=== PATIENT | male | born 1950 | race Caucasian/White ===

== ENCOUNTER 2017-08-26 13:15 | Inpatient (IN) ==
[2017-08-26] MEDS ORDERED: IOPAMIDOL 100 ML BOTTLE IV ONE (13:16)
[2017-08-26] MEDS ORDERED: 0.9 % SODIUM CHLORIDE 1,000 ML IV ONE (13:36)
[2017-08-26] MEDS ORDERED: ONDANSETRON 4 MG/2 ML VIAL IV ONE (13:50)
[2017-08-26] MEDS: HYDROmorphone 2 MG/ML SYRINGE IV PRN ×4 (14:01→17:44)
[2017-08-26 14:30] LABS: Mean Cell Volume 84.6 fL (80.0-100.0); Mean Corpuscular HGB Conc 32.7 g/dL (31.0-36.0); Mean Corpuscular Hemoglobin 27.7 pg (26.0-34.0); Platelet Count 358 K/mcL (140-440); Red Cell Distribution Width 13.7 % (11.5-14.5)
[2017-08-26 14:48] LABS: ALT/SGPT 12 U/l (0-40); Albumin 4.7 gm/dL (3.2-5.2); Albumin/Globulin Ratio 1.5 (1.0-2.3); Alkaline Phosphatase 89 U/L (39-117); Blood Urea Nitrogen 15 mg/dl (8-23); Lipase 25 U/L (7-60)
[2017-08-26 15:13] LABS: Band Neutrophils % 2 % (0-10); Lymphocytes % 7 % (15-49); Monocytes % (Manual) 6 % (1-12); Platelet Estimate NORMAL (NORMAL); RBC Morphology NORMAL (NORMAL); Segmented Neutrophils % 85 % (38-78)
[2017-08-26] MEDS ORDERED: LEVOFLOXACIN 500 MG/100 ML BAG IV ONE (15:15)
[2017-08-26] MEDS ORDERED: metroNIDAZOLE 500 MG/100 ML BAG IV ONE (15:15)
--- NOTE | 2017-08-26 15:30 | Emergency Department Note ---
Abdominal Pain HPI - General Chief Complaint: Abdominal Pain Stated Complaint: ABD pain, high white count Time Seen by Provider: 08/26/17 13:48 Source: patient Mode of arrival: ambulatory Limitations: no limitations - History of Present Illness HPI Narrative: 67-year-old male who started suddenly vomiting this morning. He went to [facility] urgent care in [place]. Reports some loose still last night fever and chills with severe right lower quadrant belly pain. By medicine sent him over here. Also reports dizziness and swelling in the feet sometimes but this is intermittent - Related Data Previous Rx's Medication Instructions Recorded Meclizine [Antivert] 25 mg PO TIDP PRN #30 tablet 02/05/16 Allergies Allergy/AdvReac Type Severity Reaction Status Date / Time No Known Drug Allergies Allergy Verified 08/26/17 13:22 Review of Systems All systems ED: reviewed and negative except as stated. Abdominal Pain PMH - Past Medical History Attestation: Yes: The following information was validated with the patient. Medical history: Reports: kidney stones, other (He has a central nervous system disorder) Surgical history ED: Reports: cataract, tonsillectomy, ureteral stent - Social History Smoking status: Never smoker Alcohol use: Reports: Rarely Physical Exam Some acute distress but able to rest. Not diaphoretic. Normocephalic atraumatic. Conjunctive are clear sclerae nonicteric. No nasal discharge or congestion. Oropharynx is pink and moist. Neck is supple without lymphadenopathy thyromegaly or carotid bruit. Heart is regular rate and rhythm no murmurs appreciated. Lungs clear to auscultation bilaterally without wheezes rales rhonchi or respiratory distress. Abdomen is soft nonrigid but tender in multiple locations including epigastric periumbilical and right lower quadrant as well as right flank. guarding a little bit. No current pedal edema. +2 radial pulse. Alert oriented able answer questions appropriately. On initial exam he was actually vomiting and heaving-this resolved with Zofran - General Limitations: no limitations Course Vital Signs Temperature 98.6 F 08/26/17 13:17 Pulse Rate 85 08/26/17 13:17 Respiratory Rate 16 08/26/17 13:17 Blood Pressure 176/98 08/26/17 13:17 Pulse Oximetry (%) 97 08/26/17 13:17 Temperature 99.9 F H 08/27/17 07:20 Pulse Rate 64 08/27/17 07:20 Respiratory Rate 14 08/27/17 07:20 Blood Pressure 150/71 08/27/17 07:20 Pulse Oximetry (%) 94 08/27/17 07:20 Abdominal Pain - Lab Data Lab results reviewed: Yes I reviewed the patient's lab results. Result diagrams: 08/27/17 05:06 08/27/17 05:06 Lab Results 08/26/17 08/26/17 08/26/17 Range/Units 13:51 13:51 13:51 WBC 23.4 H (4.5-11.0) K/mcL RBC 5.40 (4.50-5.90) M/mcL Hgb 14.9 (13.5-16.5) g/dL Hct 45.7 (41.0-55.0) % POC Hct 47.0 (41.0-55.0) % MCV 84.6 (80.0-100.0) fL MCH 27.7 (26.0-34.0) pg MCHC 32.7 (31.0-36.0) g/dL RDW 13.7 (11.5-14.5) % Plt Count 358 (140-440) K/mcL MPV 8.7 (7.4-10.4) fL Total Counted 100 Seg Neutrophils % 85 H (38-78) % Band Neutrophils % 2 (0-10) % Lymphocytes % 7 L (15-49) % Monocytes % (Manual) 6 (1-12) % Platelet Estimate Normal (NORMAL) RBC Morphology Normal (NORMAL) VBG Lactic Acid 2.1 (0.5-2.2) mmol/L POC Sodium 138 (133-145) mmol/L Sodium 139 (133-145) mmol/L POC Potassium 4.1 (3.3-5.1) mmol/L Potassium 4.0 (3.3-5.1) mmol/L POC Chloride 104 (96-108) mmol/L Chloride 100 (96-108) mmol/L Carbon Dioxide 22 (22-30) mmol/L POC Total CO2 23 (22-30) mmol/L Anion Gap 17.0 H (8-16) POC BUN 16 (8-23) mg/dl BUN 15 (8-23) mg/dl Creatinine 1.2 (0.7-1.2) mg/dl POC Creatinine 1.2 (0.7-1.2) mg/dl GFR Calculation 61 Glucose 109 H (70-105) mg/dL POC Glucose 110 H (70-105) mg/dL Calcium 9.5 (8.6-10.4) mg/dl POC WB Ioniz Calcium 1.17 (1.16-1.32) mmol/L Total Bilirubin 0.9 (0.0-1.0) mg/dL AST 22 (0-37) U/l ALT 12 (0-40) U/l Alkaline Phosphatase 89 (39-117) U/L Total Protein 7.9 (5.9-8.4) gm/dL Albumin 4.7 (3.2-5.2) gm/dL Globulin 3.2 (2.2-3.7) gm/dL Albumin/Globulin Ratio 1.5 (1.0-2.3) Lipase 25 (7-60) U/L Procalcitonin (<0.10) ng/mL 08/26/17 Range/Units 13:51 WBC (4.5-11.0) K/mcL RBC (4.50-5.90) M/mcL Hgb (13.5-16.5) g/dL Hct (41.0-55.0) % POC Hct (41.0-55.0) % MCV (80.0-100.0) fL MCH (26.0-34.0) pg MCHC (31.0-36.0) g/dL RDW (11.5-14.5) % Plt Count (140-440) K/mcL MPV (7.4-10.4) fL Total Counted Seg Neutrophils % (38-78) % Band Neutrophils % (0-10) % Lymphocytes % (15-49) % Monocytes % (Manual) (1-12) % Platelet Estimate (NORMAL) RBC Morphology (NORMAL) VBG Lactic Acid (0.5-2.2) mmol/L POC Sodium (133-145) mmol/L Sodium (133-145) mmol/L POC Potassium (3.3-5.1) mmol/L Potassium (3.3-5.1) mmol/L POC Chloride (96-108) mmol/L Chloride (96-108) mmol/L Carbon Dioxide (22-30) mmol/L POC Total CO2 (22-30) mmol/L Anion Gap (8-16) POC BUN (8-23) mg/dl BUN (8-23) mg/dl Creatinine (0.7-1.2) mg/dl POC Creatinine (0.7-1.2) mg/dl GFR Calculation Glucose (70-105) mg/dL POC Glucose (70-105) mg/dL Calcium (8.6-10.4) mg/dl POC WB Ioniz Calcium (1.16-1.32) mmol/L Total Bilirubin (0.0-1.0) mg/dL AST (0-37) U/l ALT (0-40) U/l Alkaline Phosphatase (39-117) U/L Total Protein (5.9-8.4) gm/dL Albumin (3.2-5.2) gm/dL Globulin (2.2-3.7) gm/dL Albumin/Globulin Ratio (1.0-2.3) Lipase (7-60) U/L Procalcitonin 0.11 (<0.10) ng/mL - Radiology Data Radiology results reviewed: Yes I reviewed the patient's radiology results. CT scan of the abdomen and pelvis shows 2 stones 1 3 and 1 4 mm stone at right UVJ junction and moderate to severe sigmoid diverticulitis without abscess or perforation Disposition Pt seen by [employer]/PA only: No Clinical Impression: Ureteral calculus, right Diverticulitis Qualifiers: Diverticulitis site: large intestine Diverticulitis bleeding: without bleeding Diverticulitis complication: without perforation or abscess Qualified Code(s): K57.32 - Diverticulitis of large intestine without perforation or abscess without bleeding Summary: Patient initially treated with Zofran IV fluids and Dilaudid during workup Found to have significant diverticulitis and so treated with fluoroquinolone and metronidazole IV. Also symptomatic ureteral stones in the right Discussed his case with Dr. Javi Lakhani general surgeon who agreed to consult on the patient but recommended hospitalist to admit. Discussed case with Dr. Welch the hospitalist who agreed to admit the patient for further care Disposition: Xfer As Inpt ([facility]) Condition: Serious
--- NOTE | 2017-08-26 18:01 | Internal Med History&Physical ---
Medical - H&P: [facility] Patient information: Note initiated : 08/26/17 at 5:58 pm Service Date, if different from initiated Date: [] Patient: Enrique Jones a 67 y/o M admitted on for ABD pain, high white count. Chief Complaint: n/v History of present illness: Mr. Jones is a 67 year old M With a history of nephrolithiasis, heart murmur, central sleep apnea who was in usual state of health until 6 AM this morning when he had intractable nausea and vomiting as well as hematuria. He complains of central and lower abdominal pain that has now improved to 5/10 after Dilaudid in the ER. He has had no fevers, but does have chills. His emesis was nonbloody and nonbilious. No diarrhea. CT scan was done in the ED which shows a right 4 mm renal stone and uncomplicated diverticulitis. Dr. Lakhani with surgery was consultative by the ED provider.He was treated with Levaquin, Flagyl, Zofran and Dilaudid. He had a mild lactic acidosis of 2.1 and white count elevated to 23.4. He has had multiple episodes of nephrolithiasis. He was previously followed by Dr. Kellogg and has required multiple lithotripsies. He does not take any medications to help prevent renal stones. Review of systems: Please see the HPI. Otherwise, a comprehensive of review systems is negative or noncontributory to the chief complaint. Medical - H&P: PMH Medical history: #Nephrolithiasis status post lithotripsy 3 #Central sleep apnea. He is not on CPAP or nocturnal oxygen. #There is mention of peptic ulcer disease in his chart. He denies this. He does state he was admitted to [facility] in 1970 for possible heart attack. Surgical history: #Bilateral cataract surgery #Multiple eye surgeries in the past was sounds like strabismus Pertinent family history: His brother also has nephrolithiasis. Social history: He lives alone. 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 He is a full code and designates his best friend, Scarlett Pierce, as his surrogate medical decision maker. He is a never smoker and drinks 3-4 beers a year. He denies any recreational drug use. Medical - H&P: Meds Home Medications Medication Instructions Recorded Confirmed Type Meclizine [Antivert] 25 mg PO TIDP PRN #30 tablet 02/05/16 08/26/17 Rx Allergies Allergy/AdvReac Type Severity Reaction Status Date / Time No Known Drug Allergies Allergy Verified 08/26/17 13:22 Medical - H&P: Exam - Constitutional Vitals: Temp Pulse Resp BP Pulse Ox 98.6 F 68 16 148/84 96 08/26/17 13:17 08/26/17 17:22 08/26/17 13:17 08/26/17 17:16 08/26/17 17:22 General: Well-developed, well-nourished. NAD. Appears his stated age. HEENT: Normocephalic, atraumatic. PERRLA. EOMI. Anicteric sclera; conjunctiva are clear. External ears are normal. Mucous members are moist. Neck: Is supple without lymphadenopathy or JVD. CV: Regular rate and rhythm. 1/6 systolic murmur best heard at the left lower sternal border Pulmonary: No acute respiratory distress. Lungs are clear auscultation bilaterally. Abdomen: Mildly distended, moderate tenderness throughout. No guarding or rebound. Hypoactive bowel tones. Extremities: No clubbing, cyanosis or edema. Neuro: Alert and oriented 3. Cranial nerves II through XII are intact. No focal motor or sensory deficits. Skin: Warm and dry Psych: Normal mood and affect Medical - H&P: Reslt - Labs CBC & Chem 7: 08/26/17 13:51 08/26/17 13:51 Labs: Short CBC 08/26/17 Range/Units 13:51 WBC 23.4 H (4.5-11.0) K/mcL Hgb 14.9 (13.5-16.5) g/dL Hct 45.7 (41.0-55.0) % Plt Count 358 (140-440) K/mcL BMP 08/26/17 13:51 Sodium 139 Potassium 4.0 Chloride 100 Carbon Dioxide 22 BUN 15 Creatinine 1.2 Glucose 109 H Calcium 9.5 Liver Function 08/26/17 Range/Units 13:51 Total Bilirubin 0.9 (0.0-1.0) mg/dL AST 22 (0-37) U/l ALT 12 (0-40) U/l Alkaline Phosphatase 89 (39-117) U/L Albumin 4.7 (3.2-5.2) gm/dL - Impressions CT scan reportedly shows diverticulitis and a 4mm stone. I also reviewed the images and agree. Medical - H&P: A/P - Narrative A/P Narrative: #Right renal stone, 4mm With history of multiple prior renal stones. Given its size, this is likely to pass on its own. Will order IV fluids, IV Dilaudid and Flomax. Check UA given his leukocytosis to rule out obstructive pyelonephritis. He is well covered with antibiotics below. Strain urine. #Uncomplicated diverticulitis No evidence of perforation or abscess on CT. Appreciate Dr. Lakhani's surgical input. Continue IV Levaquin and Flagyl. # Intractable nausea/ vomiting Clear liquid diet as tolerated. PRN antiemetics. This is likely related to pain , his nephrolithiasis and his diverticulitis. #Leukocytosis with lactic acidosis. Does not meet sepsis or qsofa criteria. May have component of infection, but also suspect a stress response. We'll trend lactic acid and leukocytosis. #DVT prophylaxis: Enoxaparin #CODE STATUS: Full. His best friend, Scarlett Pierce, is his surrogate medical decision maker.
[2017-08-26] MEDS ORDERED: ONDANSETRON 4 MG/2 ML VIAL IV PRN (18:12)
[2017-08-26] MEDS ORDERED: HYDROmorphone 2 MG/ML SYRINGE IV PRN (18:12)
[2017-08-26] MEDS ORDERED: metroNIDAZOLE 500 MG/100 ML BAG IV SCH (18:30)
--- NOTE | 2017-08-26 18:44 | Cat Scan Report ---
CLINICAL INFORMATION: Abdominal pain nausea and vomiting COMPARISON: None. TECHNIQUE: Following enteric contrast, 80 cc of Isovue-300 were injected intravenously, and 60 seconds later, 2.5 mm helical slices were obtained from the mid heart through the subtrochanteric regions. Following reconstruction, 2.5 mm sagittal, coronal and axial reformatted images were processed and reviewed at bone, lung and soft tissue windows. Five minutes later, 5 mm helical slices were obtained from the mid heart through the kidneys and viewed at soft tissue windows. FINDINGS: Lung bases show minor bibasilar atelectasis. No effusion. The visualized heart is mildly enlarged. Images through the abdomen show the liver, gallbladder and bile ducts, spleen, pancreas and aorta, including aortic branches, are normal in size, configuration and attenuation without focal lesion. There are two small adjacent stones in the distal right ureter at the level of the sciatic notch. They measure three and 4 mm respectively and result in moderate right hydroureter/hydronephrosis. A small amount of perinephric fluid surrounds the right kidney - as expected. Moderate lobulation of both kidneys. One millimeter nonobstructing stone seen inferior calyx of the right kidney to three small non-nonobstructing stones noted inferior calyx of the left kidney. Images through the pelvis show urinary bladder to be normal. The prostate is moderately enlarged. The seminal vesicles unremarkable. Moderate diverticulitis of the mid sigmoid colon features moderate wall thickening and and inflammatory changes in the perisigmoid fat. There is a 3 cm diverticulum projecting from the antimesenteric mesenteric wall of the mid sigmoid colon. It is inflamed. The remainder of the colon, appendix, small bowel and stomach are grossly normal. Bone windows show no osseous abnormality. IMPRESSION: 1. Moderate, yet simple, diverticulitis involving a 10 cm segment of mid sigmoid colon. This features a 3 cm giant diverticulum projecting superiorly from the antimesenteric border. No evidence of raul abscess or fistula. 2. Two stones, 4 mm and 3 mm respectively, in the distal right ureter resulting in moderate hydroureter/hydronephrosis. Small nonobstructing stones inferior calyces of both kidneys are also noted 3. 19 mm left adrenal nodule which should represent a benign adenoma 4. Moderate prostate enlargement Interpreted and Authenticated by: Toy Devine 08/26/17
[2017-08-26] MEDS ORDERED: HYDROcodone/APAP 5/325MG TABLET PO ONE (19:24)
[2017-08-26] MEDS ORDERED: ONDANSETRON 4 MG/2 ML VIAL ONE (19:25)
[2017-08-26] MEDS: 0.9 % SODIUM CHLORIDE 1,000 ML IV SCH (19:26)
[2017-08-26] MEDS: SENNOSIDES 1 TABLET PO SCH (21:09)
[2017-08-26] MEDS: 0.9 % SODIUM CHLORIDE 10 ML SYRINGE IV SCH (22:22)
[2017-08-26] MEDS: metroNIDAZOLE 500 MG/100 ML BAG IV SCH (22:22)
[2017-08-26] MEDS: HYDROcodone/APAP 5/325MG TABLET PO PRN (23:32)
[2017-08-26] MEDS: PROCHLORPERAZINE 10 MG/2 ML VIAL IV PRN (23:35)
[2017-08-26 23:41] LABS: Appearance,Urine HAZY; Bacteria,Urine 0 /hpf (0); Bilirubin,Urine NEG (NEG); Color,Urine YELLOW; Glucose,Urine (UA) NEGATIVE (NEG); Leukocyte Esterase,Urine NEG /uL (NEG); Mucus,Urine MOD /hpf (0); Nitrate,Urine NEG (NEG); Protein,Urine NEG (NEG); Specific Gravity,Urine 1.042 (1.000-1.035); Urine Amorphous Crystals FEW /hpf (0); Urine Blood >=1.0 mg/dL (<0.03); Urine RBC > 182 /hpf (0-1); Urine Squamous Epithelial Cell 0 /hpf (0-4); Urine WBC 27 /hpf (0-4); Urobilinogen,Urine NEG (NEG)
[2017-08-27] MEDS: 0.9 % SODIUM CHLORIDE 1,000 ML IV SCH ×3 (03:54→18:57)
[2017-08-27] MEDS: metroNIDAZOLE 500 MG/100 ML BAG IV SCH ×3 (06:01→21:17)
[2017-08-27] MEDS: 0.9 % SODIUM CHLORIDE 10 ML SYRINGE IV SCH ×3 (06:01→22:15)
[2017-08-27 06:42] LABS: Mean Cell Volume 84.6 fL (80.0-100.0); Mean Corpuscular HGB Conc 33.6 g/dL (31.0-36.0); Mean Corpuscular Hemoglobin 28.4 pg (26.0-34.0); Platelet Count 262 K/mcL (140-440); RBC 4.46 M/mcL (4.50-5.90); Red Cell Distribution Width 14.2 % (11.5-14.5)
[2017-08-27 06:58] LABS: ALT/SGPT 10 U/l (0-40); Albumin 3.8 gm/dL (3.2-5.2); Albumin/Globulin Ratio 1.5 (1.0-2.3); Alkaline Phosphatase 67 U/L (39-117); Blood Urea Nitrogen 14 mg/dl (8-23)
[2017-08-27 07:28] LABS: Band Neutrophils % 1 % (0-10); Lymphocytes % 7 % (15-49); Monocytes % (Manual) 5 % (1-12); Platelet Estimate NORMAL (NORMAL); RBC Morphology NORMAL (NORMAL); Segmented Neutrophils % 87 % (38-78)
[2017-08-27] MEDS: ENOXAPARIN 40 MG/0.4 ML SYRINGE SQ SCH (08:18)
[2017-08-27] MEDS: TAMSULOSIN 0.4 MG CAPSULE PO SCH (08:18)
[2017-08-27] MEDS: PROCHLORPERAZINE 10 MG/2 ML VIAL IV PRN (08:25)
[2017-08-27] MEDS ORDERED: LEVOFLOXACIN 500 MG/100 ML BAG IV SCH (09:00)
--- NOTE | 2017-08-27 15:01 | Internal Med Progress Note ---
Medical - PN: Subj Patient information: Note initiated : 08/27/17 at 2:57 pm Service Date, if different from initiated Date: [] Patient: Enrique Jones 67 y/o M admitted on 08/26/17 for ABD pain, high white count. Chief Complaint: nausea Interval history: Admit August 26: This is a 67-year-old male with a history of nephrolithiasis , heart murmur, central sleep apnea who was in his usual state of health until 6 AM the morning of admission when he developed intractable nausea and vomiting , hematuria and abdominal pain. He was found to have uncomplicated diverticulitis and to renal stones (3 mm, 4 mm) resulting in moderate hydroureter/hydronephrosis. He was treated with IV fluids, Dilaudid, Levaquin and Flagyl and admitted to the floor. August 27: He continues to have abdominal bloating and pain with nausea although she has been tolerating some clear liquids. He has a poor appetite. He thinks he may have passed one of his stones, but is not sure if he's not been consistent straining his urine. His white count has improved. Pertinent ROS: No fevers or shortness of breath. - Constitutional Vitals: Vital Signs Temp Pulse Resp BP Pulse Ox 98.3 F 66 16 157/77 99 08/27/17 12:00 08/27/17 12:00 08/27/17 12:00 08/27/17 12:00 08/27/17 12:00 Period Temp Pulse Resp BP Sys/Chopra Pulse Ox Last 24 Hr 97.6 F-99.9 F 64-81 14-18 144-177/67-97 93-99 Intake and Output 08/27/17 08/27/17 08/27/17 05:59 13:59 21:59 Intake Total 1100 / 1100 1700 / 1700 Output Total 350 / 350 Balance 750 / 750 1700 / 1700 Intake & Output: Intake & Output 08/27/17 08/27/17 08/27/17 05:59 13:59 21:59 Intake Total 1100 / 1100 1700 / 1700 Output Total 350 / 350 Balance 750 / 750 1700 / 1700 Intake: IV 1100 / 1100 1100 / 1100 Sodium Chloride 0.9% 1,000 ml @ 1000 / 1000 1000 / 1000 125 mls/hr IV .Q8H EVE Rx#: [id number] Oral 600 / 600 Output: Void Amount 350 / 350 Other: Meal 1 jello Feeding Ability Independent # Voids 1 1 # [place] 3 General: Well-developed, well-nourished. NAD. CV: Regular rate and rhythm. 1/6 systolic murmur best heard at the left lower sternal border Pulmonary: No acute respiratory distress. Lungs are clear auscultation bilaterally. Abdomen: Moderately distended, moderate tenderness throughout. No guarding or rebound. Hypoactive bowel tones. Extremities: No clubbing, cyanosis or edema. Neuro: Alert and oriented 3. Cranial nerves II through XII are intact. No focal motor or sensory deficits. Psych: Normal mood and affect Medical - PN: Obj Da - Labs CBC & Chem 7: 08/27/17 05:06 08/27/17 05:06 Labs: Abnormal Lab Results 08/27/17 08/27/17 08/26/17 05:06 05:06 23:21 WBC 12.7 H RBC 4.46 L Hgb 12.7 L Hct 37.7 L Seg Neutrophils % 87 H Lymphocytes % 7 L Anion Gap Creatinine 1.3 H Glucose POC Glucose Total Bilirubin 1.3 H Ur Specific [place] 1.042 H Urine Ketones 5/tr A Urine Occult Blood >=1.0 A Urine RBC > 182 H Urine WBC 27 H Amorphous Crystals Few A 08/26/17 08/26/17 13:51 13:51 WBC 23.4 H RBC Hgb Hct Seg Neutrophils % 85 H Lymphocytes % 7 L Anion Gap 17.0 H Creatinine Glucose 109 H POC Glucose 110 H Total Bilirubin Ur Specific [place] Urine Ketones Urine Occult Blood Urine RBC Urine WBC Amorphous Crystals Meds: Medications Hydrocodone Bitart/Acetaminophen ([place] 5/325mg) 1 tab PO Q4HP PRN PRN Reason: Pain Last Admin: 08/26/17 23:32 Dose: 1 tab Enoxaparin Sodium (Lovenox) 40 mg SQ DAILY [facility] Last Admin: 08/27/17 08:18 Dose: 40 mg Hydromorphone HCl (Dilaudid) 0.5 mg IV Q2HP PRN PRN Reason: Pain Levofloxacin (Levaquin) 500 mg in 100 mls @ 100 mls/hr IV Q24H [facility] Last Admin: 08/27/17 09:23 Dose: 100 mls/hr Sodium Chloride (Sodium Chloride 0.9%) 1,000 mls @ 125 mls/hr IV .Q8H [facility] Last Admin: 08/27/17 14:19 Dose: 125 mls/hr Metronidazole (Flagyl) 500 mg in 100 mls @ 100 mls/hr IV Q8H [facility] Last Admin: 08/27/17 14:20 Dose: 100 mls/hr Ondansetron HCl (Zofran) 4 mg IV Q6HP PRN PRN Reason: Nausea And Vomiting Last Admin: 08/27/17 03:54 Dose: 4 mg Pneumococcal Polyvalent Vaccine (Pneumovax 23) 0.5 ml IM .ONCE ONE Stop: 08/28/17 10:01 Prochlorperazine Edisylate (Compazine) 5 mg IV Q4HP PRN PRN Reason: Nausea And Vomiting Last Admin: 08/27/17 08:25 Dose: 5 mg Senna (Senokot) 2 tab PO HS [facility] Last Admin: 08/26/17 21:09 Dose: 2 tab Sodium Chloride (Saline Flush) 10 ml IV Q8 [facility] Last Admin: 08/27/17 14:20 Dose: 10 ml Tamsulosin HCl (Flomax) 0.4 mg PO QDAY [facility] Last Admin: 08/27/17 08:18 Dose: 0.4 mg Medical - PN: A/P - Time Spent With Patient Total time spent is greater than 50% in coordination of care (as documented) at patient's floor/unit and/or counseling patient: 25 - 35 minutes - Narrative A/P Narrative: #Right renal stones, 4mm & 3mm causing hydronephrosis and hydoureter With history of multiple prior renal stones. Given size, will likely to pass on own; may have passed one today. Cont IV fluids, IV Dilaudid and Flomax. UA w mild pyuria; f/u cx. He is well covered with antibiotics below. Strain urine. Check renal US tomorrow to evaluate hydronephrosis. #Uncomplicated diverticulitis No evidence of perforation or abscess on CT. Continue IV Levaquin and Flagyl. # Intractable nausea/ vomiting Clear liquid diet as tolerated. PRN antiemetics. This is likely related to pain , his nephrolithiasis and his diverticulitis. #Leukocytosis with lactic acidosis, improved Does not meet sepsis or qsofa criteria. May have component of infection, but also suspect a stress response. We'll trend lactic acid and leukocytosis. #DVT prophylaxis: Enoxaparin #CODE STATUS: Full. His best friend, Scarlett Pierce, is his surrogate medical decision maker. #ADOD: pending on passage of stones and ability to tolerate po. Medical - PN: Qual - VTE Deep Vein Thrombosis/Pulmonary Embolism Present on Admission: No
[2017-08-27] MEDS: SENNOSIDES 1 TABLET PO SCH (21:17)
[2017-08-28] MEDS: 0.9 % SODIUM CHLORIDE 1,000 ML IV SCH ×2 (00:13→00:16)
[2017-08-28] MEDS: metroNIDAZOLE 500 MG/100 ML BAG IV SCH (05:04)
[2017-08-28] MEDS: 0.9 % SODIUM CHLORIDE 10 ML SYRINGE IV SCH (05:05)
[2017-08-28 05:35] LABS: Mean Cell Volume 84.1 fL (80.0-100.0); Mean Corpuscular HGB Conc 33.6 g/dL (31.0-36.0); Mean Corpuscular Hemoglobin 28.3 pg (26.0-34.0); Platelet Count 251 K/mcL (140-440)
[2017-08-28 05:57] LABS: ALT/SGPT 10 U/l (0-40); Albumin 3.5 gm/dL (3.2-5.2); Albumin/Globulin Ratio 1.5 (1.0-2.3); Alkaline Phosphatase 59 U/L (39-117); Blood Urea Nitrogen 10 mg/dl (8-23)
[2017-08-28 06:53] LABS: Band Neutrophils % 3 % (0-10); Lymphocytes % 14 % (15-49); Monocytes % (Manual) 8 % (1-12); Platelet Estimate NORMAL (NORMAL); RBC Morphology NORMAL (NORMAL); Segmented Neutrophils % 75 % (38-78)
--- NOTE | 2017-08-28 08:32 | Ultrasound Report ---
History: Right ureteral stones and follow-up right-sided hydronephrosis Findings This is a limited study which evaluates only the right kidney. The right kidney measures 5.1 x 5.2 x 12.2 cm. There is mild to moderate hydronephrosis. The renal pelvis measures approximately 2.2 cm in AP dimension. On the CT scan done on 08/26/17 the renal pelvis was approximately 3.2 cm in AP dimension. The right ureter is obscured by overlying bowel gas. A small calyceal stone was seen in a lower pole calyx in the right kidney on the prior CT. This is not clearly identified on the current ultrasound. No kidney stone is seen on this study. There is no perinephric stranding. The renal cortex is normal in thickness and echogenicity. There is lobulation. Impression: Mild to moderate hydronephrosis which has improved. Interpreted and Authenticated by: Blayne Martinez 08/28/17
[2017-08-28] MEDS: ENOXAPARIN 40 MG/0.4 ML SYRINGE SQ SCH (08:53)
[2017-08-28] MEDS: TAMSULOSIN 0.4 MG CAPSULE PO SCH (08:53)
[2017-08-28] MEDS ORDERED: LEVOFLOXACIN 750 MG TABLET PO SCH (09:00)
[2017-08-28] MEDS ORDERED: PNEUMOCOCCAL 23-VAL P-SAC VAC 0.5 ML VIAL IM ONE (10:00)
[2017-08-28] MEDS ORDERED: FLU VACC QS2017-18 36MOS UP/PF 60 MCG/0.5 ML SYRINGE IM ONE (10:00)
--- NOTE | 2017-08-28 11:03 | Discharge Summary ---
Medical - DS: Prov Patient information: Note initiated : 08/28/17 at 11:01 am Service Date, if different from initiated Date: [] Patient: Enrique Jones 67 y/o M admitted on 08/26/17 for ABD pain, high white count. Follow-up issues: 1. Completion of antibiotics for diverticulitis 2. Continued education on lifestyle changes to prevent nephrolithiasis. Consider medical management of nephrolithiasis prevention depending on previous stone composition. Date of admission: 08/26/17 18:05 Discharge date: 08/28/17 Primary care physician: DIVYA Romero Attending physician on admission: Jazmyne Welch Consults: Attending physician on discharge: Jazmyne Welch Medical - DS: Meds - Discharge Medications Active and Home Medications: Home Medications Meclizine [Antivert] 25 mg PO TIDP PRN #30 tablet 02/05/16 [Rx Confirmed Last Taken Unknown] Medical - DS: Hosp Hospital course: This is a 67-year-old male with a history of nephrolithiasis, heart murmur, central sleep apnea who was in his usual state of health until 6 AM the morning of admission when he developed intractable nausea and vomiting, hematuria and abdominal pain. He was found to have uncomplicated diverticulitis and two renal stones (3 mm, 4 mm) resulting in moderate hydroureter/hydronephrosis. He was treated with IV fluids, Dilaudid, Levaquin and Flagyl and admitted to the floor. He was able to pass at least one stone and had improvement of his symptoms and radiographic improvement of his obstruction. He is able to tolerate a normal diet and oral antibiotics on the day of discharge. He was given instructions on how to prevent nephrolithiasis and the treatment of diverticulitis. Discharge diagnosis: Uncomplicated diverticulitis Secondary discharge diagnosis: Nephrolithiasis with multiple stones causing obstruction and hydronephrosis. Pertinent studies/significant findings: CT abdomen and pelvis 08/26/17 shows moderate, yet simple diverticulitis. No abscess or fistula. No perforation. It also shows 2 stones, 4 mm and 3 mm respectively in the distal right ureter causing moderate hydroureter/ hydronephrosis. Repeat renal ultrasound 08/28/17 shows improvement of his hydronephrosis and ureter. - Time Spent with Patient Total time spent providing and/or coordinating discharge services: Medical - DS: Exam - Constitutional Vitals: Vital Signs Temp Pulse Resp BP Pulse Ox 08/28/17 06:15 98.8 F 18 146/86 97 08/28/17 04:00 98.6 F 59 L 14 153/73 96 08/27/17 23:46 98.4 F 74 147/67 97 08/27/17 20:00 98.2 F 75 16 168/93 96 08/27/17 16:00 100.2 F H 72 16 168/76 95 08/27/17 12:00 98.3 F 66 16 157/77 99 Intake and Output 08/27/17 08/28/17 08/28/17 21:59 05:59 13:59 Intake Total 263 / 263 1000 / 1000 1400 / 1400 Balance 263 / 263 1000 / 1000 1400 / 1400 Intake: IV 163 / 163 1000 / 1000 1100 / 1100 Sodium Chloride 0.9% 1,000 ml @ 1000 / 1000 1000 / 1000 125 mls/hr IV .Q8H EVE Rx#: [id number] Oral 100 / 100 300 / 300 Other: Meal Breakfast Percent of Meal Consumed 100% Feeding Ability Independent # Voids 1 2 Weight 177 lb General: NAD CV: Regular rate and rhythm Pulmonary: CTA B Abdomen: Mildly distended, nontender. Hypoactive bowel tones. Neuro: Alert and oriented 3. Extremities: No clubbing cyanosis or edema. Medical - DS: Data Labs on day of discharge: Labs from last 24 hours 08/28/17 08/28/17 04:50 04:50 WBC 9.6 RBC 4.30 L Hgb 12.2 L Hct 36.2 L MCV 84.1 MCH 28.3 MCHC 33.6 RDW 14.0 Plt Count 251 MPV 8.3 Total Counted 100 Seg Neutrophils % 75 Band Neutrophils % 3 Lymphocytes % 14 L Monocytes % (Manual) 8 WBC Morphology Normal Platelet Estimate Normal RBC Morphology Normal Sodium 139 Potassium 3.5 Chloride 105 Carbon Dioxide 22 Anion Gap 12.0 BUN 10 Creatinine 1.1 GFR Calculation 68 Glucose 88 Calcium 8.8 Total Bilirubin 1.0 AST 21 ALT 10 Alkaline Phosphatase 59 Total Protein 5.9 Albumin 3.5 Globulin 2.4 Albumin/Globulin Ratio 1.5 Preliminary micro results at discharge 08/26/17 15:45 Blood Culture - Preliminary Blood 08/26/17 15:50 Blood Culture - Preliminary Blood Medical - DS: A/P - Patient/Caregiver Discharge Instructions Activity: resume usual activities as tolerated Diet: High Fiber Additional Instructions: 1. Finish your antibiotics, Levaquin and Flagyl, for your diverticulitis. Please see the handouts that are attached regarding diverticulitis and kidney stones. 2. Drink plenty of fluids. 3. Use hydrocodone for pain as needed. This can be constipating so uses MiraLAX 1-3 times daily as needed to ensure you're having regular bowel movements. 4. Flomax/ tamsulosin can help your kidney stone pass by relaxing the muscles in your ureters. Prescriptions: HYDROcodone/APAP 5/325MG [[place] 5/325Mg] 1 tab PO Q4HP PRN #20 tab PRN Reason: Pain Levofloxacin [Levaquin] 750 mg PO DAILY #5 tab metroNIDAZOLE [Flagyl] 500 mg PO Q8 #15 tab Tamsulosin [Flomax] 0.4 mg PO QDAY #30 cap - Follow up Plan Follow up with: Ifeoma Camara ARNP [Nurse Practitioner] - Disposition: Home, Self-Care Prognosis: Good Rehab Potential: Good I certify that the patient requires SNF services: No Overall status at discharge: patient is progressing back to baseline Medical - DS: Qual - VTE Deep Vein Thrombosis/Pulmonary Embolism Present on Admission: No
[2017-08-28] MEDS: HYDROcodone/APAP 5/325MG TABLET PO PRN (11:56)
[2017-08-28] MEDS ORDERED: metroNIDAZOLE 500 MG TABLET PO SCH (14:00)
== END 2017-08-28 12:14 | disposition home or self-care (01) | DRG 392 ==
LOC: ED 13:15 → MEDSUR 18:05
PROVIDERS: ADMIT Internal Medicine; ATTEND Internal Medicine